=== PATIENT | female | born 1995 | race Two or more races ===

== ENCOUNTER 2021-01-07 19:09 | Inpatient (IN) | payer BC ==
[2021-01-07] MEDS ORDERED: Misoprostol 200 MCG Tab PO PRN (19:32)
[2021-01-07] MEDS ORDERED: Sodium Chloride 0.9% 10 ML SDV IV PRN (19:32)
[2021-01-07] MEDS ORDERED: Tranexamic Acid 1,000 MG in Sodium Chloride 0.9% 100 ML IV PRN (19:32)
[2021-01-07] MEDS ORDERED: Sodium Chloride 0.9% 10 ML Syringe FLUSH PRN (19:32)
[2021-01-07] MEDS ORDERED: Lidocaine 1% 50 ML MDV INJECT PRN (19:32)
[2021-01-07] MEDS ORDERED: Methylergonovine 0.2 MG/1 ML Amp IM PRN (19:32)
[2021-01-07] MEDS ORDERED: Water For Irrigation,Sterile 1,000 ML Container IRR PRN (19:32)
[2021-01-07] MEDS ORDERED: Sodium Chloride 0.9% 2.5 ML Syringe FLUSH PRN (19:32)
[2021-01-07] MEDS ORDERED: Carboprost Tromethamine 250 MCG/1 ML Amp IM PRN (19:32)
[2021-01-07] MEDS ORDERED: Terbutaline 1 MG/ML SDV SUBCUT PRN (19:32)
[2021-01-07] MEDS ORDERED: Nalbuphine 10 MG/1 ML Vial IVPUSH PRN (19:32)
[2021-01-07] MEDS ORDERED: Oxytocin/0.9 % Sodium Chloride 30 UNIT/500 ML BAG IV SCH ×2 (19:45)
[2021-01-07] MEDS ORDERED: Misoprostol 25 MCG (1/4 of 100 MCG) Tab VAG PRN ×2 (21:00)
[2021-01-07] MEDS ORDERED: Ampicillin 2 GM in Sodium Chloride 0.9% 100 ML IV ONE (21:00)
[2021-01-07] MEDS: Lactated Ringers 1,000 ML IV SCH (21:15)
[2021-01-07] MEDS ORDERED: Ampicillin 2 GM Vial ONE (21:45)
[2021-01-07] MEDS ORDERED: Sodium Chloride 0.9% 100 ML ONE (21:45)
[2021-01-08] MEDS: Lactated Ringers 1,000 ML IV SCH ×4 (01:52→21:08)
[2021-01-08] MEDS: Butorphanol 1 MG/ML SDV IVPUSH PRN ×2 (02:40→04:42)
[2021-01-08] MEDS: Ampicillin 1 GM in Sodium Chloride 0.9% 50 ML IV SCH ×4 (02:42→15:17)
[2021-01-08] MEDS ORDERED: fentaNYL 100 MCG/2 ML SDV ONE ×4 (06:09→18:21)
[2021-01-08] MEDS ORDERED: Ropivacaine HCl/PF 100 ML ONE ×2 (06:09→15:02)
[2021-01-08] MEDS ORDERED: Ropivacaine 0.2% PF 2 MG/ML 20 ML SDV ONE (06:09)
--- NOTE | 2021-01-08 07:00 | PCM.PREANE ---
Preanesthetic Assessment - Procedure Proposed Procedure: labor epidural- induction - Anesthesia/Transfusion/Family Hx Anesthesia History: No Prior Anesthesia Family History of Anesthesia Reaction: No Transfusion History: Prior Transfusion Without Reaction - Review of Systems General: No Symptoms Pulmonary: No Symptoms Cardiovascular: No Symptoms Gastrointestinal: No Symptoms Neurological: No Symptoms Other: Reports: Diabetes (gestional DM) - Physical Assessment Height: 5 ft 6 in Weight: 107.955 kg ASA Class: 2 Mental Status: Alert & Oriented x3 Airway Class: Mallampati = 1 Dentition: Reports: Normal Dentition Thyro-Mental Finger Breadths: 3 Mouth Opening Finger Breadths: 3 ROM/Head Extension: Full Lungs: Clear to Auscultation, Normal Respiratory Effort Cardiovascular: Regular Rate, Regular Rhythm - Lab Values: Laboratory Last Values WBC 8.30 K/uL (4.0-11.0) 01/07/21 20:36 RBC 4.93 M/uL (4.30-5.90) 01/07/21 20:36 Hgb 13.3 g/dL (12.0-16.0) 01/07/21 20:36 Hct 41.2 % (36.0-46.0) 01/07/21 20:36 MCV 83.6 fL (80.0-98.0) 01/07/21 20:36 MCH 27.0 pg (27.0-32.0) 01/07/21 20:36 MCHC 32.3 g/dL (31.0-37.0) 01/07/21 20:36 RDW Std Deviation 58.3 fl (28.0-62.0) 01/07/21 20:36 RDW Coeff of Lotus 19 % (11.0-15.0) H 01/07/21 20:36 Plt Count 264 K/uL (150-400) 01/07/21 20:36 MPV 10.30 fL (7.40-12.00) 01/07/21 20:36 Nucleated RBC % 0.0 /100WBC 01/07/21 20:36 Nucleated RBCs # 0 K/uL 01/07/21 20:36 POC Glucose 70 mg/dL (70-99) 01/08/21 04:32 Blood Type O POSITIVE 01/07/21 20:36 Antibody Screen NEGATIVE 01/07/21 20:36 - Allergies Allergies/Adverse Reactions: Allergies Allergy/AdvReac Type Severity Reaction Status Date / Time No Known Allergies Allergy Verified 01/07/21 20:48 - Blood Blood Available: Yes Product(s) Available: PRBC - Anesthesia Plan Pre-Op Medication Ordered: None - Acknowledgements Anesthesia Type Planned: Epidural Pt an Appropriate Candidate for the Planned Anesthesia: Yes Alternatives and Risks of Anesthesia Discussed w Pt/Guardian: Yes Pt/Guardian Understands and Agrees with Anesthesia Plan: Yes PreAnesthesia Questionnaire HEENT History: Reports: Impaired Vision, Other (See Below) Other HEENT History: 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 Cardiovascular History: Reports: None RESIDENT MEDICAL OFFICER History: Reports: Endocrine/Metabolic History: Reports: Diabetes, Gestational Hematologic History: Reports: Blood Transfusion(s) - Past Surgical History HEENT Surgical History: Reports: None Endocrine Surgical History: Reports: None Dermatological Surgical History: Reports: None - SUBSTANCE USE Tobacco Use Status *Q: Never Tobacco User Second Hand Smoke Exposure: No Recreational Drug Use History: No - HOME MEDS Home Medications: Home Meds Ferrous Sulfate, Dried [Iron] 160 mg PO DAILY 01/07/21 [History] Vits #93/Iron Fum/FA [ Formula Tablet] 1 each PO DAILY 01/07/21 [History] - CURRENT (IN HOUSE) MEDS Current Meds: Current Medications Butorphanol Tartrate (Butorphanol 1 Mg/Ml Sdv) 1 mg IVPUSH Q1H PRN PRN Reason: Pain Last Admin: 01/08/21 04:42 Dose: 1 mg Documented by: Carboprost Tromethamine (Carboprost Tromethamine 250 Mcg/1 Ml Amp) 250 mcg IM ASDIRECTED PRN PRN Reason: Post Hemorrhage Oxytocin/Sodium Chloride (Oxytocin 30 Unit/500 Ml-Ns) 30 unit in 500 mls @ 999 mls/hr IV TITRATE TOBY Tranexamic Acid 1,000 mg/ (Sodium Chloride) 110 mls @ 660 mls/hr IV ONETIME PRN PRN Reason: Bleeding Oxytocin/Sodium Chloride (Oxytocin 30 Unit/500 Ml-Ns) 30 unit in 500 mls @ 2 mls/hr IV TITRATE TOBY; Protocol Ampicillin Sodium 1 gm/ Sodium (Chloride) 50 mls @ 100 mls/hr IV Q4H TOBY Last Admin: 01/08/21 02:42 Dose: 100 mls/hr Documented by: Lactated Ringer's (Ringers, Lactated) 1,000 mls @ 150 mls/hr IV ASDIRECTED TOBY Last Admin: 01/08/21 06:19 Dose: 999 mls/hr Documented by: Lidocaine HCl (Lidocaine 1% 50 Ml Mdv) 50 ml INJECT ONETIME PRN PRN Reason: Laceration repair Methylergonovine Maleate (Methylergonovine 0.2 Mg/1 Ml Amp) 0.2 mg IM ASDIRECTED PRN PRN Reason: Post Hemorrhage Misoprostol (Misoprostol 200 Mcg Tab) 200 mcg PO ONETIME PRN PRN Reason: Post Hemorrhage Misoprostol (Misoprostol 25 Mcg (1/4 Of 100 Mcg) Tab) 25 mcg VAG ONETIME PRN PRN Reason: Cervical Ripening Last Admin: 01/07/21 22:06 Dose: 25 mcg Documented by: Misoprostol (Misoprostol 25 Mcg (1/4 Of 100 Mcg) Tab) 25 mcg VAG Q4H PRN PRN Reason: Cervical Ripening Last Admin: 01/08/21 01:53 Dose: 25 mcg Documented by: Nalbuphine HCl (Nalbuphine 10 Mg/1 Ml Vial) 10 mg IVPUSH Q1H PRN PRN Reason: Pain (severe 7-10) Ondansetron HCl (Ondansetron 4 Mg/2 Ml Sdv) 4 mg IVPUSH Q6H PRN PRN Reason: Nausea/Vomiting Sodium Chloride (Sodium Chloride 0.9% 10 Ml Syringe) 10 ml FLUSH ASDIRECTED PRN PRN Reason: Keep Vein Open Sodium Chloride (Sodium Chloride 0.9% 2.5 Ml Syringe) 2.5 ml FLUSH ASDIRECTED PRN PRN Reason: Keep Vein Open Sodium Chloride (Sodium Chloride 0.9% 10 Ml Sdv) 10 ml IV ASDIRECTED PRN PRN Reason: IV Use Sterile Water (Water For Irrigation,Sterile 1,000 Ml Container) 1,000 ml IRR ASDIRECTED PRN PRN Reason: delivery Terbutaline Sulfate (Terbutaline 1 Mg/Ml Sdv) 0.25 mg SUBCUT ASDIRECTED PRN PRN Reason: Tacysystole Discontinued Medications Ampicillin Sodium (Ampicillin 2 Gm Vial) Confirm Administered Dose 2 gm .ROUTE .[facility] ONE Stop: 01/07/21 21:46 Last Admin: 01/08/21 04:51 Dose: Not Given Documented by: Fentanyl (Fentanyl 100 Mcg/2 Ml Sdv) Confirm Administered Dose 100 mcg .[address] .[facility] ONE Stop: 01/08/21 06:10 Ampicillin Sodium 2 gm/ Sodium (Chloride) 100 mls @ 200 mls/hr IV ONETIME ONE Stop: 01/07/21 21:29 Last Admin: 01/07/21 22:04 Dose: 200 mls/hr Documented by: Sodium Chloride (Normal Saline) Confirm Administered Dose 100 mls @ as directed .ROUTE .[facility] ONE Stop: 01/07/21 21:46 Last Admin: 01/08/21 04:51 Dose: Not Given Documented by: Ropivacaine (Naropin 0.2%) Confirm Administered Dose 100 mls @ as directed .ROUTE .[facility] ONE Stop: 01/08/21 06:10 Ropivacaine (Ropivacaine 0.2% Pf 2 Mg/Ml 20 Ml Sdv) Confirm Administered Dose 20 ml .[address] .[facility] ONE Stop: 01/08/21 06:10
[2021-01-08] MEDS: Ondansetron 4 MG/2 ML SDV IVPUSH PRN ×2 (09:37→15:25)
[2021-01-08] MEDS ORDERED: Lidocaine 2% with EPINEPHrine 1:200,000 20 ML SDV ONE ×2 (13:26→18:22)
--- NOTE | 2021-01-08 13:35 | PCM.PRNOTE ---
- Free Text/Narrative Note: Anes Note Patient reports incomplete analgesia right side. Epidural cath pulled back from 20 cm sterling at skin to 15 cm sterling at skin. Epidural cath redressed with sterile bandage. The epidural was then redosed with 100 mcg fentanyl plus 5 cc 2% lido with epi. Time with patient [id number] Aki Russo CRNA
[2021-01-08] MEDS ORDERED: Acetaminophen 500 MG Tab PO PRN (16:36)
[2021-01-08] MEDS ORDERED: Citric Acid/Sodium Citrate Solution 30 ML Cup PO ONE (18:16)
[2021-01-08] MEDS ORDERED: Oxytocin 10 Units/1 ML SDV ONE (18:21)
[2021-01-08] MEDS ORDERED: Phenylephrine 1% 10 MG/ML SDV ONE (18:21)
[2021-01-08] MEDS ORDERED: Ondansetron 4 MG/2 ML SDV ONE (18:21)
[2021-01-08] MEDS ORDERED: Ketorolac 30 MG/ML SDV ONE (18:21)
[2021-01-08] MEDS ORDERED: Morphine PF 10 MG/10 ML SDV ONE (18:21)
[2021-01-08] MEDS ORDERED: ceFAZolin 1 GM Vial ONE (18:22)
[2021-01-08] MEDS ORDERED: Sodium Chloride 0.9% 20 ML ONE (18:22)
[2021-01-08] MEDS ORDERED: Oxytocin/0.9 % Sodium Chloride 30 UNIT/500 ML BAG IV SCH (18:30)
[2021-01-08] MEDS ORDERED: Nalbuphine 10 MG/1 ML Vial IVPUSH PRN (19:03)
[2021-01-08] MEDS ORDERED: Midazolam 1 MG/ML 2 ML SDV ONE (19:07)
[2021-01-08] MEDS ORDERED: diphenhydrAMINE 50 MG/ML SDV IVPUSH PRN (20:13)
[2021-01-08] MEDS ORDERED: Acetaminophen/oxyCODONE 325-5 MG Tab PO PRN ×2 (20:13)
[2021-01-08] MEDS ORDERED: Lanolin 100% Cream 7 GM Tube TOP PRN (20:13)
[2021-01-08] MEDS ORDERED: Bisacodyl 10 MG Supp RECTAL PRN (20:13)
[2021-01-08] MEDS ORDERED: Ondansetron 4 MG/2 ML SDV IVPUSH PRN (20:13)
[2021-01-08] MEDS ORDERED: Oxytocin/Lactated Ringers 30 UNIT/500 ML BAG IV SCH (20:15)
--- NOTE | 2021-01-08 20:30 | PCM.OPNOTE ---
- General Post-Op/Procedure Note Date of Surgery/Procedure: 01/08/21 Operative Procedure(s): Primary low transverse delivery Findings: Live male infant, left occiput posterior position, Apgars 5/9, weight 4590g Extension of left hysterotomy apex to vagina Normal-appearing ovaries and tubes Placenta intact, 3-vessel cord Pre Op Diagnosis: 25yo @ 40w0d. Induction of labor for gestational diabetes. Arrest of descent. Persistent occiput posterior position. GBS positive. Chorioamnionitis. Maternal obesity Post-Op Diagnosis: Same Anesthesia Technique: Epidural Primary Surgeon: Bernadette Gallego Anesthesia Provider: Ismael Johns Pathology: Placenta, cord blood, cord gases Fluid Replacement, Intraop: 1,700 Output, Urine Amount: 150 EBL in mLs: 1,800 Complications: None Condition: Good Free Text/Narrative:: Intake & Output 01/08/21 01/08/21 01/08/21 06:59 14:59 22:59 Intake Total 1000 1550 Output Total 700 Balance 1000 850 1g TXA given intra-op Will place 2 units packed RBCs on hold due to maternal anemia and intra-op hemorrhage Has received Ampicillin, Gentamicin, & Clindamycin for chorioamnionitis
--- NOTE | 2021-01-08 20:41 | PCM.POSTAN ---
POST ANESTHESIA ASSESSMENT - MENTAL STATUS Mental Status: Alert - RESPIRATORY Respiratory Status: Respiratory Rate WNL - CARDIOVASCULAR CV Status: Pulse Rate WNL - GASTROINTESTINAL GI Status: No Symptoms - POST OP HYDRATION Hydration Status: Adequate & Stable
[2021-01-08] MEDS ORDERED: Measles, Mumps & Rubella Vaccine 0.5 ML SDV SUBCUT ONE (21:00)
--- NOTE | 2021-01-08 22:07 | OR ---
SURGEON: Bernadette Gallego MD DATE OF PROCEDURE: 01/08/2021 PREOPERATIVE DIAGNOSES: 1. 25-year-old G1, P0, at 40 weeks' and 0 day gestation. 2. Induction of labor for gestational diabetes. 3. Arrest of descent. 4. Persistent occiput posterior position. 5. Group B Streptococcus positive. 6. Chorioamnionitis. 7. Maternal obesity. 8. macrosomia. POSTOPERATIVE DIAGNOSES: 1. 25-year-old G1, P0, at 40 weeks' and 0 day gestation. 2. Induction of labor for gestational diabetes. 3. Arrest of descent. 4. Persistent occiput posterior position. 5. Group B Streptococcus positive. 6. Chorioamnionitis. 7. Maternal obesity. 8. macrosomia. PROCEDURE: Primary low transverse delivery. PRIMARY SURGEON: Bernadette Gallego MD ANESTHESIA: Epidural. IV FLUIDS: 1700 mL. URINE OUTPUT: 150 mL. ESTIMATED BLOOD LOSS: 1800 mL. ANTIBIOTIC PROPHYLAXIS: Ampicillin, gentamicin, and clindamycin. INTRAOPERATIVE MEDICATION: 1 g tranexamic acid. PATHOLOGY: Placenta, cord blood, cord gases. FINDINGS: Live male infant in left occiput posterior position. scores 5 and 9 at one and five minutes respectively. Weight 4590 g. Extension of right hysterotomy apex to vagina. Normal-appearing ovaries and tubes. Placenta intact with 3- vessel cord. INDICATIONS: This is a 25-year-old G1, P0, who presented at 39 weeks' and 6 days' gestation for planned induction of labor due to gestational diabetes. She was started on ampicillin for GBS prophylaxis. She received 2 doses of Cytotec and began guerda. She had spontaneous rupture of membranes with clear fluid noted. She received an epidural at approximately 4 cm dilated. She was started on Pitocin for augmentation of labor. She progressed to complete cervical dilation. At this time, maternal fever of 100.6 degrees Fahrenheit was noted. She was given Tylenol, and a repeat temperature was 100.8 degrees Fahrenheit. At this time, she was started on gentamicin for presumed intra-amniotic infection. The patient began pushing, and over the next 2 hours, pushed to +1 station. The head was in persistent occiput posterior position, and due to suspected macrosomia and minimal descent with good maternal pushing efforts, the decision was made to proceed with delivery. The risks and benefits and alternatives of delivery were reviewed with the patient and her , and she desired to proceed. She received clindamycin for additional preoperative antibiotic prophylaxis. DESCRIPTION OF PROCEDURE: The patient was taken to operating room, where epidural anesthesia was found to be adequate. She was placed in a dorsal supine position with a leftward tilt. She was prepared and draped in the normal sterile fashion. A Pfannenstiel skin incision was made with a scalpel and carried through to the underlying layer of fascia with the Bovie. Fascial incision was extended with curved Rob scissors. The superior aspect of the fascial incision was grasped with Bailey clamps, elevated, and underlying rectus muscles dissected off bluntly. In a similar fashion, inferior aspect of the fascial incision was grasped with Bailey clamps, elevated, and the underlying rectus muscles dissected off bluntly. Peritoneum was identified in the midline and entered bluntly with a digit. The peritoneal incision was extended using manual traction. Next, a large Carlos retractor was inserted. A bladder flap was created in the usual manner. A low uterine hysterotomy was created. The hysterotomy was extended using manual traction. The fetus was noted to be in left occiput posterior position. The head was reduced on the pelvis, however, due to positioning delivery of the head was extremely difficult. The 's arm repeatedly protruded through the hysterotomy and was replaced. The head was at an angle and with moderate exertion was able to be straightened out and eventually the head was delivered through the hysterotomy. The remainder of the body was delivered easily with manual pressure on the fundus. The cord was clamped and cut and the infant was quickly handed off to the awaiting nurse cell maker and respiratory therapist. Cord blood and cord gases were obtained. Placenta was removed via manual extraction. The uterus was cleared of all clots and blood and debris. The hysterotomy was inspected and noted to have the right apex extending into the vagina. A running lock stitch of 0 Vicryl suture was used to close the majority of the hysterotomy. A second stitch of the same suture was used to close the vaginal extension. A third stitch of 0 Vicryl suture was used to imbricate the incision. The incision was oozing, and at this time, 1 g of tranexamic acid was given along with Dalton placed on the hysterotomy. Hemostasis was then observed. The Carlos retractor was removed. The fascial incision was closed with a running stitch of 0 Vicryl suture. The subcutaneous tissue was closed with 3-0 Vicryl in a running fashion. Skin was closed with 4-0 Monocryl in a subcuticular fashion. Steri-Strips and a pressure dressing were applied. The patient tolerated the delivery well. All sponge, lap, and needle counts were correct x3. [id number] / MODL /[id number] MTDD
[2021-01-09] MEDS: Clindamycin Phosphate in D5W 900 MG in Premix Bag 1 BAG IV SCH ×8 (02:20→20:22)
[2021-01-09] MEDS: Ketorolac 30 MG/ML SDV IVPUSH SCH ×4 (02:20→16:18)
[2021-01-09] MEDS: Lactated Ringers 1,000 ML IV SCH (04:58)
--- NOTE | 2021-01-09 06:51 | PCM48HPAN ---
Post Anesthesia Note - EVALUATION WITHIN 48HRS OF ANESTHETIC Vital Signs in Normal Range: Yes Patient Participated in Evaluation: Yes Respiratory Function Stable: Yes Airway Patent: Yes Cardiovascular Function Stable: Yes Hydration Status Stable: Yes Pain Control Satisfactory: Yes Nausea and Vomiting Control Satisfactory: Yes Mental Status Recovered: Yes Vital Signs: Last Vital Signs Temp 36.9 C 01/09/21 04:00 Pulse 97 01/09/21 04:00 Resp 18 01/09/21 06:00 BP 115/69 01/09/21 04:00 Pulse Ox 99 01/09/21 06:00
[2021-01-09] MEDS: Docusate Sodium 100 MG Cap PO SCH ×2 (08:46→20:22)
--- NOTE | 2021-01-09 09:57 | PCM.PNPP ---
- General Info Date of Service: 01/09/21 Admission Dx/Problem (Free Text): Patient doing well this morning. Minimal lochia. Doing well with eating breakfast so far, no nausea. Has not ambulated yet. [place] still in place. Functional Status: Reports: Pain Controlled, Tolerating Diet - Review of Systems General: Reports: No Symptoms HEENT: Reports: No Symptoms Pulmonary: Reports: No Symptoms Cardiovascular: Reports: No Symptoms Gastrointestinal: Reports: Abdominal Pain Genitourinary: Reports: No Symptoms Musculoskeletal: Reports: No Symptoms Skin: Reports: No Symptoms Neurological: Reports: No Symptoms Psychiatric: Reports: No Symptoms - Patient Data Vital Signs - Most Recent: Last Vital Signs Temp 36.3 C 01/09/21 08:00 Pulse 97 01/09/21 09:00 Resp 18 01/09/21 09:00 BP 119/62 01/09/21 08:00 Pulse Ox 99 01/09/21 09:00 Weight - Most Recent: 107.955 kg I&O - Last 24 Hours: Intake & Output 01/08/21 01/09/21 01/09/21 22:59 06:59 14:59 Intake Total 3250 1050 Output Total 1000 225 Balance 2250 825 Lab Results - Last 24 Hours: Laboratory Results - last 24 hr 01/07/21 01/08/21 01/08/21 Range/Units 20:36 11:05 12:15 Hgb (12.0-16.0) g/dL Hct (36.0-46.0) % Cord VBG pH (7.25-7.45) Cord VBG Base Excess (-10--2) POC Glucose 65 L 68 L (70-99) mg/dL Blood Type O POSITIVE Antibody Screen NEGATIVE Crossmatch See Detail 01/08/21 01/08/21 01/08/21 Range/Units 13:30 15:06 16:45 Hgb (12.0-16.0) g/dL Hct (36.0-46.0) % Cord VBG pH (7.25-7.45) Cord VBG Base Excess (-10--2) POC Glucose 68 L 81 75 (70-99) mg/dL Blood Type Antibody Screen Crossmatch 01/08/21 01/08/21 01/08/21 Range/Units 18:00 18:57 20:44 Hgb 11.3 L (12.0-16.0) g/dL Hct 34.5 L (36.0-46.0) % Cord VBG pH 7.262 (7.25-7.45) Cord VBG Base Excess -7 (-10--2) POC Glucose 80 (70-99) mg/dL Blood Type Antibody Screen Crossmatch 01/09/21 01/09/21 Range/Units 00:25 05:15 Hgb 10.1 L 10.0 L (12.0-16.0) g/dL Hct 31.2 L 31.1 L (36.0-46.0) % Cord VBG pH (7.25-7.45) Cord VBG Base Excess (-10--2) POC Glucose (70-99) mg/dL Blood Type Antibody Screen Crossmatch Med Orders - Current: Current Medications Acetaminophen (Acetaminophen 500 Mg Tab) 1,000 mg PO Q6H PRN PRN Reason: Fever Last Admin: 01/08/21 16:45 Dose: 1,000 mg Documented by: Bisacodyl (Bisacodyl 10 Mg Supp) 10 mg RECTAL ONETIME PRN PRN Reason: Constipation Butorphanol Tartrate (Butorphanol 1 Mg/Ml Sdv) 1 mg IVPUSH Q1H PRN PRN Reason: Pain Last Admin: 01/08/21 04:42 Dose: 1 mg Documented by: Carboprost Tromethamine (Carboprost Tromethamine 250 Mcg/1 Ml Amp) 250 mcg IM ASDIRECTED PRN PRN Reason: Post Hemorrhage Diphenhydramine HCl (Diphenhydramine 50 Mg/Ml Sdv) 25 mg IVPUSH Q6H PRN PRN Reason: Itching or Nausea Docusate Sodium (Docusate Sodium 100 Mg Cap) 100 mg PO BID TOBY Last Admin: 01/09/21 08:46 Dose: 100 mg Documented by: Emollient Ointment (Lanolin 100% Cream 7 Gm Tube) 0 gm TOP ASDIRECTED PRN PRN Reason: Sore Nipples Oxytocin/Sodium Chloride (Oxytocin 30 Unit/500 Ml-Ns) 30 unit in 500 mls @ 999 mls/hr IV TITRATE TOBY Tranexamic Acid 1,000 mg/ (Sodium Chloride) 110 mls @ 660 mls/hr IV ONETIME PRN PRN Reason: Bleeding Oxytocin/Sodium Chloride (Oxytocin 30 Unit/500 Ml-Ns) 30 unit in 500 mls @ 2 mls/hr IV TITRATE [facility]; Protocol Last Titration: 01/08/21 18:12 Dose: 0 munits/min, 0 mls/hr Documented by: Ampicillin Sodium 1 gm/ Sodium (Chloride) 50 mls @ 100 mls/hr IV Q4H [facility] Last Admin: 01/08/21 15:17 Dose: 100 mls/hr Documented by: Lactated Ringer's (Ringers, Lactated) 1,000 mls @ 150 mls/hr IV ASDIRECTED [facility] Last Infusion: 01/08/21 14:30 Dose: 150 mls/hr Documented by: Oxytocin/Sodium Chloride (Oxytocin 30 Unit/500 Ml-Ns) 30 unit in 500 mls @ 250 mls/hr IV TITRATE [facility] Clindamycin Phosphate 900 mg/ (Premix) 50 mls @ 100 mls/hr IV Q8H [facility] Stop: 01/09/21 19:00 Last Admin: 01/09/21 02:20 Dose: 100 mls/hr Documented by: Lactated Ringer's (Ringers, Lactated) 1,000 mls @ 125 mls/hr IV ASDIRECTED [facility] Last Admin: 01/09/21 04:58 Dose: 125 mls/hr Documented by: Oxytocin/Lactated Ringer's (Pitocin In Lr 30 Units/500 Ml) 30 unit in 500 mls @ 999 mls/hr IV TITRATE [facility]; Protocol Gentamicin Sulfate 540 mg/ (Sodium Chloride) 63.5 mls @ 100 mls/hr IV ONETIME ONE Stop: 01/09/21 18:38 Ibuprofen (Ibuprofen 800 Mg Tab) 800 mg PO Q8H PRN PRN Reason: mild pain or fever Ketorolac Tromethamine (Ketorolac 30 Mg/Ml Sdv) 30 mg IVPUSH Q6H [facility] Stop: 01/09/21 14:16 Last Admin: 01/09/21 09:27 Dose: Not Given Documented by: Lidocaine HCl (Lidocaine 1% 50 Ml Mdv) 50 ml INJECT ONETIME PRN PRN Reason: Laceration repair Methylergonovine Maleate (Methylergonovine 0.2 Mg/1 Ml Amp) 0.2 mg IM ASDIRECTED PRN PRN Reason: Post Hemorrhage Misoprostol (Misoprostol 200 Mcg Tab) 200 mcg PO ONETIME PRN PRN Reason: Post Hemorrhage Misoprostol (Misoprostol 25 Mcg (1/4 Of 100 Mcg) Tab) 25 mcg VAG ONETIME PRN PRN Reason: Cervical Ripening Last Admin: 01/07/21 22:06 Dose: 25 mcg Documented by: Misoprostol (Misoprostol 25 Mcg (1/4 Of 100 Mcg) Tab) 25 mcg VAG Q4H PRN PRN Reason: Cervical Ripening Last Admin: 01/08/21 01:53 Dose: 25 mcg Documented by: Nalbuphine HCl (Nalbuphine 10 Mg/1 Ml Vial) 10 mg IVPUSH Q1H PRN PRN Reason: Pain (severe 7-10) Nalbuphine HCl (Nalbuphine 10 Mg/1 Ml Vial) 5 mg IVPUSH Q3H PRN PRN Reason: Pruritis Stop: 01/09/21 19:03 Ondansetron HCl (Ondansetron 4 Mg/2 Ml Sdv) 4 mg IVPUSH Q6H PRN PRN Reason: Nausea/Vomiting Last Admin: 01/08/21 15:25 Dose: 4 mg Documented by: Ondansetron HCl (Ondansetron 4 Mg/2 Ml Sdv) 4 mg IVPUSH Q4H PRN PRN Reason: Nausea/Vomiting Oxycodone/Acetaminophen (Acetaminophen/Oxycodone 325-5 Mg Tab) 1 tab PO Q4H PRN PRN Reason: Pain (moderate 4-6) Oxycodone/Acetaminophen (Acetaminophen/Oxycodone 325-5 Mg Tab) 2 tab PO Q4H PRN PRN Reason: Pain (moderate 4-6) Sodium Chloride (Sodium Chloride 0.9% 10 Ml Syringe) 10 ml FLUSH ASDIRECTED PRN PRN Reason: Keep Vein Open Sodium Chloride (Sodium Chloride 0.9% 2.5 Ml Syringe) 2.5 ml FLUSH ASDIRECTED PRN PRN Reason: Keep Vein Open Sodium Chloride (Sodium Chloride 0.9% 10 Ml Sdv) 10 ml IV ASDIRECTED PRN PRN Reason: IV Use Sterile Water (Water For Irrigation,Sterile 1,000 Ml Container) 1,000 ml IRR ASDIRECTED PRN PRN Reason: delivery Terbutaline Sulfate (Terbutaline 1 Mg/Ml Sdv) 0.25 mg SUBCUT ASDIRECTED PRN PRN Reason: Tacysystole Discontinued Medications Ampicillin Sodium (Ampicillin 2 Gm Vial) Confirm Administered Dose 2 gm .ROUTE .[facility]-MED ONE Stop: 01/07/21 21:46 Last Admin: 01/08/21 04:51 Dose: Not Given Documented by: Cefazolin Sodium (Cefazolin 1 Gm Vial) Confirm Administered Dose 2 gm .ROUTE .[facility]-MED ONE Stop: 01/08/21 18:23 Citric Acid/Sodium Citrate (Citric Acid/Sodium Citrate Solution 30 Ml Cup) 30 ml PO ONETIME ONE Stop: 01/08/21 18:17 Fentanyl (Fentanyl 100 Mcg/2 Ml Sdv) Confirm Administered Dose 100 mcg .ROUTE .[facility] ONE Stop: 01/08/21 06:10 Fentanyl (Fentanyl 100 Mcg/2 Ml Sdv) Confirm Administered Dose 100 mcg .ROUTE .[facility] ONE Stop: 01/08/21 13:27 Fentanyl (Fentanyl 100 Mcg/2 Ml Sdv) Confirm Administered Dose 100 mcg .ROUTE .[facility] ONE Stop: 01/08/21 15:02 Fentanyl (Fentanyl 100 Mcg/2 Ml Sdv) Confirm Administered Dose 100 mcg .ROUTE .[facility] ONE Stop: 01/08/21 18:22 Ampicillin Sodium 2 gm/ Sodium (Chloride) 100 mls @ 200 mls/hr IV ONETIME ONE Stop: 01/07/21 21:29 Last Admin: 01/07/21 22:04 Dose: 200 mls/hr Documented by: Sodium Chloride (Normal Saline) Confirm Administered Dose 100 mls @ as directed .ROUTE .[facility] ONE Stop: 01/07/21 21:46 Last Admin: 01/08/21 04:51 Dose: Not Given Documented by: Ropivacaine (Naropin 0.2%) Confirm Administered Dose 100 mls @ as directed .ROUTE .[facility]-MED ONE Stop: 01/08/21 06:10 Ropivacaine (Naropin 0.2%) Confirm Administered Dose 100 mls @ as directed .ROUTE .[facility] ONE Stop: 01/08/21 15:03 Gentamicin Sulfate 540 mg/ (Sodium Chloride) 113.5 mls @ 227 mls/hr IV Q24H TOBY Last Admin: 01/08/21 17:51 Dose: 227 mls/hr Documented by: Sodium Chloride (Normal Saline) Confirm Administered Dose 20 mls @ as directed .ROUTE .[facility] ONE Stop: 01/08/21 18:23 Acetaminophen (Ofirmev 1000 Mg/100 Ml) Confirm Administered Dose 100 mls @ as directed .ROUTE .[facility] ONE Stop: 01/08/21 19:38 Ketorolac Tromethamine (Ketorolac 30 Mg/Ml Sdv) Confirm Administered Dose 30 mg .ROUTE .[facility]-MED ONE Stop: 01/08/21 18:22 Lidocaine/Epinephrine (Lidocaine 2% With Epinephrine 1:200,000 20 Ml Sdv) Confirm Administered Dose 20 ml .ROUTE .[facility]-MED ONE Stop: 01/08/21 13:27 Lidocaine/Epinephrine (Lidocaine 2% With Epinephrine 1:200,000 20 Ml Sdv) Confirm Administered Dose 20 ml .ROUTE .[facility]-MED ONE Stop: 01/08/21 18:23 Measles/Mumps/Rubella Vaccine Live (Measles, Mumps & Rubella Vaccine 0.5 Ml Sdv) 0.5 ml SUBCUT .ONCE ONE Stop: 01/08/21 21:01 Midazolam HCl (Midazolam 1 Mg/Ml 2 Ml Sdv) Confirm Administered Dose 2 mg .ROUTE .[facility]-MED ONE Stop: 01/08/21 19:08 Morphine Sulfate (Morphine Pf 10 Mg/10 Ml Sdv) Confirm Administered Dose 10 mg .ROUTE .[facility]-MED ONE Stop: 01/08/21 18:22 Ondansetron HCl (Ondansetron 4 Mg/2 Ml Sdv) Confirm Administered Dose 4 mg .ROUTE .[facility]-MED ONE Stop: 01/08/21 18:22 Oxytocin (Oxytocin 10 Units/1 Ml Sdv) Confirm Administered Dose 20 unit .ROUTE .[facility]-MED ONE Stop: 01/08/21 18:22 Phenylephrine HCl (Phenylephrine 1% 10 Mg/Ml Sdv) Confirm Administered Dose 10 mg .ROUTE .[facility]-MED ONE Stop: 01/08/21 18:22 Ropivacaine (Ropivacaine 0.2% Pf 2 Mg/Ml 20 Ml Sdv) Confirm Administered Dose 20 ml .ROUTE .[facility]-MED ONE Stop: 01/08/21 06:10 Tranexamic Acid (Tranexamic Acid 1,000 Mg/10 Ml Amp) Confirm Administered Dose 1,000 mg .ROUTE .[facility]-MED ONE Stop: 01/08/21 19:30 - Interaction Disposition, : in Room with Family Feeding: Attempted ; Nursed Fair/Poor, Bottle Fed Infant Support Person: Significant Other - Recovery Exam Fundal Tone: Firm Fundal Level: At Umbilicus Fundal Placement: Midline Lochia Amount: Scant Lochia Color: Rubra/Red Bladder Status: Indwelling Catheter in Place Urinary Elimination: Indwelling Catheter (concentrated urine) - Exam General: Alert, Oriented Neck: Supple Lungs: Normal Respiratory Effort GI/Abdominal Exam: Soft, No Distention, Tender (appropriate tenderness to palpation) Extremities: Non-Tender Skin: Warm, Dry, Intact Wound/Incisions: Dressing Dry and Intact Neurological: No New Focal Deficit Psy/Mental Status: Alert, Normal Affect, Normal Mood - Problem List & Annotations (1) S/P primary low transverse SNOMED Code(s): 475478358, 47706111, 325931808, 082282880, 246954107 Code(s): Z98.891 - HISTORY OF UTERINE SCAR FROM PREVIOUS SURGERY Status: Acute Current Visit: Yes (2) Arrest of descent, delivered, current hospitalization SNOMED Code(s): 23969992, 944343168 Code(s): O62.1 - SECONDARY UTERINE INERTIA Status: Acute Current Visit: Yes (3) macrosomia, delivered, current hospitalization SNOMED Code(s): 38172159, 095629964, 787581796 Code(s): O36.60X0 - MATERNAL CARE FOR EXCESS GROWTH, UNSP TRIMESTER, UNSP Status: Acute Current Visit: Yes (4) hemorrhage, delivered, current hospitalization SNOMED Code(s): 90702131, 082639399 Code(s): O72.1 - OTHER IMMEDIATE HEMORRHAGE Status: Acute Current Visit: Yes (5) Chorioamnionitis, delivered, current hospitalization SNOMED Code(s): 39716937, 454229284 Code(s): O41.1290 - CHORIOAMNIONITIS, UNSP TRIMESTER, NOT APPLICABLE OR UNSP Status: Acute Current Visit: Yes (6) Gestational diabetes, diet controlled SNOMED Code(s): 97984417, 458172539, 714839713 Code(s): O24.410 - GESTATIONAL DIABETES MELLITUS IN , DIET CONTROLLED Status: Acute Current Visit: Yes - Problem List Review Problem List Initiated/Reviewed/Updated: Yes - My Orders Last 24 Hours: My Active Orders 01/08/21 16:36 Acetaminophen [Tylenol Extra Strength] 1,000 mg PO Q6H PRN 01/08/21 18:17 Procedure Site Prep Instruct [RC] ASDIRECTED Verify Patient Consent Obtain [RC] ASDIRECTED Schedule Procedure [COMM] Per Unit Routine 01/08/21 18:30 Clindamycin Phosphate in D5W [Cleocin in D5W 900 MG/50 ML] 900 mg Premix Bag 1 bag IV Q8H Oxytocin/0.9 % Sodium Chloride [Oxytocin 30 Unit/500 ML-NS] 30 unit in 500 ml IV TITRATE 01/08/21 20:13 Intake and Output [RC] QSHIFT Notify Provider Intake and Out [RC] ASDIRECTED Notify Provider Vital Signs [RC] ASDIRECTED Urinary Catheter Removal [RC] PER UNIT ROUTINE Acetaminophen/oxyCODONE [Percocet 325-5 MG] 1 tab PO Q4H PRN Acetaminophen/oxyCODONE [Percocet 325-5 MG] 2 tab PO Q4H PRN Ibuprofen [Motrin] 800 mg PO Q8H PRN Lanolin [Lansinoh HPA] See Dose Instructions TOP ASDIRECTED PRN Ondansetron [Zofran] 4 mg IVPUSH Q4H PRN bisacodyL [Dulcolax] 10 mg RECTAL ONETIME PRN diphenhydrAMINE [Benadryl] 25 mg IVPUSH Q6H PRN Abdominal Binder [OM.PC] Routine DVT/VTE Prophylaxis Reflex [OM.PC] Routine Heat Therapy [OM.PC] Routine Ice Therapy [OM.PC] Routine 01/08/21 20:14 Patient Status [ADT] Routine Ambulate [RC] PER UNIT ROUTINE Antiembolic Devices [RC] PER UNIT ROUTINE Communication Order [RC] PER UNIT ROUTINE Communication Order [RC] PER UNIT ROUTINE Communication Order [RC] Per Unit Routine May Shower [RC] ASDIRECTED RT Incentive Spirometry [RC] Q2HWA Assess Lochia [WOMSER] Per Unit Routine Assess Uterine Involution [WOMSER] Per Unit Routine Breast Pump [WOMSER] Per Unit Routine Peripheral IV Discontinue [OM.PC] Routine Sequential Compression Device [OM.PC] Per Unit Routine 01/08/21 20:15 Ketorolac [Toradol] 30 mg IVPUSH Q6H Lactated Ringers [Ringers, Lactated] 1,000 ml IV ASDIRECTED Oxytocin/Lactated Ringers [Pitocin in LR 30 Units/500 ML] 30 unit in 500 ml IV TITRATE 01/08/21 20:16 Antiembolic Devices [RC] .Routine VTE/DVT Education [RC] PER UNIT ROUTINE 01/08/21 20:18 RED BLOOD CELLS LP [BBK] Routine 01/08/21 20:55 Vaccines to be Administered [RC] PER UNIT ROUTINE 01/08/21 21:00 Docusate Sodium [Colace] 100 mg PO BID 01/09/21 18:00 Gentamicin 540 mg Sodium Chloride 0.9% [Normal Saline] 50 ml IV ONETIME - Assessment Assessment:: 25yo s/p 1LTCS at 40w0d for arrest of descent, persistent OP position, POD#1 - Plan Plan:: 1. care: D/C [place] today. Encourage ambulation. Monitor urine output, encourage hydration. 2. Anemia: Monitor for dizziness. If dizziness develops, will re-check hemoglobin. 2 units packed RBCs on hold due to intra-operative blood loss. 3. Rubella non-immune: MMR ordered. 4. GDMA1: 2-hour GTT . 5. Dispo: Stay today, possible discharge home tomorrow evening if meeting all milestones.
[2021-01-09 17:50] LABS: BLOOD UREA NITROGEN,BUN 13 mg/dL (7.0-18.0); CARBON DIOXIDE,CO2 21.2 mmol/L (21.0-32.0); CHLORIDE,CL 104 mmol/L (98-107); GLUCOSE RANDOM 66 mg/dL (74-106); SODIUM,NA 136 mmol/L (136-145)
[2021-01-09] MEDS ORDERED: GENTAMICIN IV ONE (18:00)
[2021-01-09] MEDS ORDERED: SODIUM CHLORIDE 0.9% IV ONE (18:00)
[2021-01-09] MEDS ORDERED: Ketorolac 30 MG/ML SDV IVPUSH SCH (20:15)
[2021-01-10] MEDS: Ibuprofen 800 MG Tab PO PRN ×2 (04:37→20:53)
[2021-01-10] MEDS: Ondansetron 4 MG/2 ML SDV IVPUSH PRN (05:49)
[2021-01-10] MEDS ORDERED: Promethazine 25 MG Supp RECTAL ONE (06:40)
[2021-01-10] MEDS ORDERED: Ketorolac 30 MG/ML SDV IVPUSH ONE (06:41)
[2021-01-10] MEDS: Docusate Sodium 100 MG Cap PO SCH ×3 (07:16→20:54)
--- NOTE | 2021-01-10 08:37 | PCM.PNPP ---
- General Info Date of Service: 01/10/21 Subjective Update: Patient with nausea and dry heaving that developed overnight. Had bowel movement last night and passed a small amount of flatus. Voided multiple times on own, urine output has increased significantly. Patient reports some chills, but has not had a fever. Denies redness or pain of breasts. Pain controlled when able to keep medication down. Ambulated in the evening without dizziness. Moderate lochia. Functional Status: Reports: Pain Controlled (overnight), Tolerating Diet (last night, nausea this AM), Ambulating, Urinating - Review of Systems General: Reports: Chills. Denies: Fever, Weakness HEENT: Reports: No Symptoms Pulmonary: Reports: No Symptoms. Denies: Shortness of Breath, Pleuritic Chest Pain, Cough Cardiovascular: Reports: No Symptoms. Denies: Chest Pain, Dyspnea on Exertion Gastrointestinal: Reports: Abdominal Pain (appropriate post-op pain), Flatus, Nausea. Denies: Constipation Genitourinary: Reports: No Symptoms Musculoskeletal: Reports: No Symptoms Skin: Reports: No Symptoms Neurological: Reports: No Symptoms Psychiatric: Reports: No Symptoms - Patient Data Vital Signs - Most Recent: Last Vital Signs Temp 37.2 C 01/10/21 07:45 Pulse 123 H 01/10/21 07:45 Resp 18 01/10/21 07:45 BP 142/84 H 01/10/21 07:45 Pulse Ox 96 01/10/21 07:45 Weight - Most Recent: 107.955 kg I&O - Last 24 Hours: Intake & Output 01/09/21 01/10/21 01/10/21 22:59 06:59 14:59 Output Total 400 300 Balance -400 -300 Lab Results - Last 24 Hours: Laboratory Results - last 24 hr 01/09/21 01/09/21 Range/Units 17:28 17:28 Hgb 9.3 L (12.0-16.0) g/dL Hct 28.0 L (36.0-46.0) % Sodium 136 (136-145) mmol/L Potassium 4.0 (3.5-5.1) mmol/L Chloride 104 (98-107) mmol/L Carbon Dioxide 21.2 (21.0-32.0) mmol/L BUN 13 (7.0-18.0) mg/dL Creatinine 0.9 (0.6-1.0) mg/dL Est Cr Clr Drug Dosing 88.68 mL/min Estimated GFR (MDRD) > 60.0 ml/min Glucose 66 L (74-106) mg/dL Calcium 7.4 L (8.5-10.1) mg/dL Med Orders - Current: Current Medications Acetaminophen (Acetaminophen 500 Mg Tab) 1,000 mg PO Q6H PRN PRN Reason: Fever Last Admin: 01/08/21 16:45 Dose: 1,000 mg Documented by: Bisacodyl (Bisacodyl 10 Mg Supp) 10 mg RECTAL ONETIME PRN PRN Reason: Constipation Butorphanol Tartrate (Butorphanol 1 Mg/Ml Sdv) 1 mg IVPUSH Q1H PRN PRN Reason: Pain Last Admin: 01/08/21 04:42 Dose: 1 mg Documented by: Carboprost Tromethamine (Carboprost Tromethamine 250 Mcg/1 Ml Amp) 250 mcg IM ASDIRECTED PRN PRN Reason: Post Hemorrhage Diphenhydramine HCl (Diphenhydramine 50 Mg/Ml Sdv) 25 mg IVPUSH Q6H PRN PRN Reason: Itching or Nausea Docusate Sodium (Docusate Sodium 100 Mg Cap) 100 mg PO BID TOBY Last Admin: 01/10/21 07:16 Dose: Not Given Documented by: Emollient Ointment (Lanolin 100% Cream 7 Gm Tube) 0 gm TOP ASDIRECTED PRN PRN Reason: Sore Nipples Oxytocin/Sodium Chloride (Oxytocin 30 Unit/500 Ml-Ns) 30 unit in 500 mls @ 999 mls/hr IV TITRATE TOBY Tranexamic Acid 1,000 mg/ (Sodium Chloride) 110 mls @ 660 mls/hr IV ONETIME PRN PRN Reason: Bleeding Oxytocin/Sodium Chloride (Oxytocin 30 Unit/500 Ml-Ns) 30 unit in 500 mls @ 2 mls/hr IV TITRATE TOBY; Protocol Last Titration: 01/08/21 18:12 Dose: 0 munits/min, 0 mls/hr Documented by: Lactated Ringer's (Ringers, Lactated) 1,000 mls @ 150 mls/hr IV ASDIRECTED TOBY Last Infusion: 01/08/21 14:30 Dose: 150 mls/hr Documented by: Oxytocin/Sodium Chloride (Oxytocin 30 Unit/500 Ml-Ns) 30 unit in 500 mls @ 250 mls/hr IV TITRATE TOBY Lactated Ringer's (Ringers, Lactated) 1,000 mls @ 125 mls/hr IV ASDIRECTED TOBY Last Admin: 01/09/21 04:58 Dose: 125 mls/hr Documented by: Oxytocin/Lactated Ringer's (Pitocin In Lr 30 Units/500 Ml) 30 unit in 500 mls @ 999 mls/hr IV TITRATE TOBY; Protocol Ibuprofen (Ibuprofen 800 Mg Tab) 800 mg PO Q8H PRN PRN Reason: mild pain or fever Last Admin: 01/10/21 04:37 Dose: 800 mg Documented by: Lidocaine HCl (Lidocaine 1% 50 Ml Mdv) 50 ml INJECT ONETIME PRN PRN Reason: Laceration repair Methylergonovine Maleate (Methylergonovine 0.2 Mg/1 Ml Amp) 0.2 mg IM ASDIRECTED PRN PRN Reason: Post Hemorrhage Misoprostol (Misoprostol 200 Mcg Tab) 200 mcg PO ONETIME PRN PRN Reason: Post Hemorrhage Misoprostol (Misoprostol 25 Mcg (1/4 Of 100 Mcg) Tab) 25 mcg VAG ONETIME PRN PRN Reason: Cervical Ripening Last Admin: 01/07/21 22:06 Dose: 25 mcg Documented by: Misoprostol (Misoprostol 25 Mcg (1/4 Of 100 Mcg) Tab) 25 mcg VAG Q4H PRN PRN Reason: Cervical Ripening Last Admin: 01/08/21 01:53 Dose: 25 mcg Documented by: Nalbuphine HCl (Nalbuphine 10 Mg/1 Ml Vial) 10 mg IVPUSH Q1H PRN PRN Reason: Pain (severe 7-10) Ondansetron HCl (Ondansetron 4 Mg/2 Ml Sdv) 4 mg IVPUSH Q6H PRN PRN Reason: Nausea/Vomiting Last Admin: 01/10/21 05:49 Dose: 4 mg Documented by: Ondansetron HCl (Ondansetron 4 Mg/2 Ml Sdv) 4 mg IVPUSH Q4H PRN PRN Reason: Nausea/Vomiting Oxycodone/Acetaminophen (Acetaminophen/Oxycodone 325-5 Mg Tab) 1 tab PO Q4H PRN PRN Reason: Pain (moderate 4-6) Oxycodone/Acetaminophen (Acetaminophen/Oxycodone 325-5 Mg Tab) 2 tab PO Q4H PRN PRN Reason: Pain (moderate 4-6) Sodium Chloride (Sodium Chloride 0.9% 10 Ml Syringe) 10 ml FLUSH ASDIRECTED PRN PRN Reason: Keep Vein Open Sodium Chloride (Sodium Chloride 0.9% 2.5 Ml Syringe) 2.5 ml FLUSH ASDIRECTED PRN PRN Reason: Keep Vein Open Sodium Chloride (Sodium Chloride 0.9% 10 Ml Sdv) 10 ml IV ASDIRECTED PRN PRN Reason: IV Use Sterile Water (Water For Irrigation,Sterile 1,000 Ml Container) 1,000 ml IRR ASDIRECTED PRN PRN Reason: delivery Terbutaline Sulfate (Terbutaline 1 Mg/Ml Sdv) 0.25 mg SUBCUT ASDIRECTED PRN PRN Reason: Tacysystole Discontinued Medications Ampicillin Sodium (Ampicillin 2 Gm Vial) Confirm Administered Dose 2 gm .ROUTE .STK-MED ONE Stop: 01/07/21 21:46 Last Admin: 01/08/21 04:51 Dose: Not Given Documented by: Cefazolin Sodium (Cefazolin 1 Gm Vial) Confirm Administered Dose 2 gm .ROUTE .STK-MED ONE Stop: 01/08/21 18:23 Citric Acid/Sodium Citrate (Citric Acid/Sodium Citrate Solution 30 Ml Cup) 30 ml PO ONETIME ONE Stop: 01/08/21 18:17 Fentanyl (Fentanyl 100 Mcg/2 Ml Sdv) Confirm Administered Dose 100 mcg .ROUTE .STK-MED ONE Stop: 01/08/21 06:10 Fentanyl (Fentanyl 100 Mcg/2 Ml Sdv) Confirm Administered Dose 100 mcg .ROUTE .STK-MED ONE Stop: 01/08/21 13:27 Fentanyl (Fentanyl 100 Mcg/2 Ml Sdv) Confirm Administered Dose 100 mcg .ROUTE .STK-MED ONE Stop: 01/08/21 15:02 Fentanyl (Fentanyl 100 Mcg/2 Ml Sdv) Confirm Administered Dose 100 mcg .ROUTE .STK-MED ONE Stop: 01/08/21 18:22 Ampicillin Sodium 2 gm/ Sodium (Chloride) 100 mls @ 200 mls/hr IV ONETIME ONE Stop: 01/07/21 21:29 Last Admin: 01/07/21 22:04 Dose: 200 mls/hr Documented by: Ampicillin Sodium 1 gm/ Sodium (Chloride) 50 mls @ 100 mls/hr IV Q4H [facility] Last Admin: 01/08/21 15:17 Dose: 100 mls/hr Documented by: Sodium Chloride (Normal Saline) Confirm Administered Dose 100 mls @ as directed .ROUTE .[facility]-MED ONE Stop: 01/07/21 21:46 Last Admin: 01/08/21 04:51 Dose: Not Given Documented by: Ropivacaine (Naropin 0.2%) Confirm Administered Dose 100 mls @ as directed .ROUTE .[facility]-MED ONE Stop: 01/08/21 06:10 Ropivacaine (Naropin 0.2%) Confirm Administered Dose 100 mls @ as directed .ROUTE .[facility] ONE Stop: 01/08/21 15:03 Gentamicin Sulfate 540 mg/ (Sodium Chloride) 113.5 mls @ 227 mls/hr IV Q24H [facility] Last Admin: 01/08/21 17:51 Dose: 227 mls/hr Documented by: Clindamycin Phosphate 900 mg/ (Premix) 50 mls @ 100 mls/hr IV Q8H [facility] Stop: 01/09/21 19:00 Last Admin: 01/09/21 20:22 Dose: 100 mls/hr Documented by: Sodium Chloride (Normal Saline) Confirm Administered Dose 20 mls @ as directed .ROUTE .[facility] ONE Stop: 01/08/21 18:23 Acetaminophen (Ofirmev 1000 Mg/100 Ml) Confirm Administered Dose 100 mls @ as directed .ROUTE .[facility] ONE Stop: 01/08/21 19:38 Gentamicin Sulfate 540 mg/ (Sodium Chloride) 63.5 mls @ 100 mls/hr IV ONETIME ONE Stop: 01/09/21 18:38 Gentamicin Sulfate 540 mg/ (Sodium Chloride) 113.5 mls @ 178.74 mls/hr IV ONETIME ONE Stop: 01/09/21 18:53 Last Admin: 01/09/21 18:42 Dose: 178.74 mls/hr Documented by: Ketorolac Tromethamine (Ketorolac 30 Mg/Ml Sdv) Confirm Administered Dose 30 mg .ROUTE .[facility]-MED ONE Stop: 01/08/21 18:22 Ketorolac Tromethamine (Ketorolac 30 Mg/Ml Sdv) 30 mg IVPUSH Q6H [facility] Stop: 01/09/21 14:16 Last Admin: 01/09/21 16:18 Dose: 30 mg Documented by: Ketorolac Tromethamine (Ketorolac 30 Mg/Ml Sdv) 30 mg IVPUSH Q6H [facility] Stop: 01/09/21 20:16 Last Admin: 01/09/21 20:23 Dose: 30 mg Documented by: Ketorolac Tromethamine (Ketorolac 30 Mg/Ml Sdv) 30 mg IVPUSH ONETIME ONE Stop: 01/10/21 06:42 Last Admin: 01/10/21 07:44 Dose: 30 mg Documented by: Lidocaine/Epinephrine (Lidocaine 2% With Epinephrine 1:200,000 20 Ml Sdv) Confirm Administered Dose 20 ml .ROUTE .STK-MED ONE Stop: 01/08/21 13:27 Lidocaine/Epinephrine (Lidocaine 2% With Epinephrine 1:200,000 20 Ml Sdv) Confirm Administered Dose 20 ml .ROUTE .STK-MED ONE Stop: 01/08/21 18:23 Measles/Mumps/Rubella Vaccine Live (Measles, Mumps & Rubella Vaccine 0.5 Ml Sdv) 0.5 ml SUBCUT .ONCE ONE Stop: 01/08/21 21:01 Midazolam HCl (Midazolam 1 Mg/Ml 2 Ml Sdv) Confirm Administered Dose 2 mg .ROUTE .STK-MED ONE Stop: 01/08/21 19:08 Morphine Sulfate (Morphine Pf 10 Mg/10 Ml Sdv) Confirm Administered Dose 10 mg .ROUTE .STK-MED ONE Stop: 01/08/21 18:22 Nalbuphine HCl (Nalbuphine 10 Mg/1 Ml Vial) 5 mg IVPUSH Q3H PRN PRN Reason: Pruritis Stop: 01/09/21 19:03 Ondansetron HCl (Ondansetron 4 Mg/2 Ml Sdv) Confirm Administered Dose 4 mg .ROUTE .STK-MED ONE Stop: 01/08/21 18:22 Oxytocin (Oxytocin 10 Units/1 Ml Sdv) Confirm Administered Dose 20 unit .ROUTE .STK-MED ONE Stop: 01/08/21 18:22 Phenylephrine HCl (Phenylephrine 1% 10 Mg/Ml Sdv) Confirm Administered Dose 10 mg .ROUTE .STK-MED ONE Stop: 01/08/21 18:22 Promethazine HCl (Promethazine 25 Mg Supp) 25 mg RECTAL ONETIME ONE Stop: 01/10/21 06:41 Last Admin: 01/10/21 07:57 Dose: 25 mg Documented by: Ropivacaine (Ropivacaine 0.2% Pf 2 Mg/Ml 20 Ml Sdv) Confirm Administered Dose 20 ml .ROUTE .STK-MED ONE Stop: 01/08/21 06:10 Tranexamic Acid (Tranexamic Acid 1,000 Mg/10 Ml Amp) Confirm Administered Dose 1,000 mg .ROUTE .STK-MED ONE Stop: 01/08/21 19:30 - Interaction Disposition, : in Room with Family Feeding: Attempted ; Nursed Fair/Poor, Bottle Fed Support Person: Significant Other - Recovery Exam Fundal Tone: Firm Fundal Level: At Umbilicus Fundal Placement: Midline Lochia Amount: Scant Lochia Color: Rubra/Red Bladder Status: Voiding Urinary Elimination: Voided - Exam General: Alert, Oriented Neck: Supple Lungs: Normal Respiratory Effort GI/Abdominal Exam: Normal Bowel Sounds, Soft, No Distention, Tender (appropriate tenderness) Extremities: Normal Inspection, Non-Tender, No Pedal Edema Skin: Warm, Dry, Intact Wound/Incisions: Healing Well Neurological: No New Focal Deficit Psy/Mental Status: Alert, Normal Affect, Normal Mood - Problem List & Annotations (1) S/P primary low transverse SNOMED Code(s): 636829276, 14417374, 791747242, 637992732, 203874622 Code(s): Z98.891 - HISTORY OF UTERINE SCAR FROM PREVIOUS SURGERY Status: Acute Current Visit: Yes (2) Arrest of descent, delivered, current hospitalization SNOMED Code(s): 99919963, 685589882 Code(s): O62.1 - SECONDARY UTERINE INERTIA Status: Acute Current Visit: Yes (3) macrosomia, delivered, current hospitalization SNOMED Code(s): 17263604, 035140233, 929069800 Code(s): O36.60X0 - MATERNAL CARE FOR EXCESS GROWTH, UNSP TRIMESTER, UNSP Status: Acute Current Visit: Yes (4) hemorrhage, delivered, current hospitalization SNOMED Code(s): 14302642, 246528884 Code(s): O72.1 - OTHER IMMEDIATE HEMORRHAGE Status: Acute Current Visit: Yes (5) Chorioamnionitis, delivered, current hospitalization SNOMED Code(s): 29400785, 360075173 Code(s): O41.1290 - CHORIOAMNIONITIS, UNSP TRIMESTER, NOT APPLICABLE OR UNSP Status: Acute Current Visit: Yes (6) Gestational diabetes, diet controlled SNOMED Code(s): 62320457, 260317055, 080605269 Code(s): O24.410 - GESTATIONAL DIABETES MELLITUS IN , DIET CONTROLLED Status: Acute Current Visit: Yes - Problem List Review Problem List Initiated/Reviewed/Updated: Yes - Assessment Assessment:: 25yo s/p 1LTCS at 40w0d for arrest of descent, persistent OP position, POD#2 - Plan Plan:: 1. care: Encourage ambulation today. Work on nausea and pain control. 2. Anemia: Hemoglobin has remained stable postoperatively. 2 units packed RBCs on hold due to intra-operative blood loss. 3. Rubella non-immune: MMR ordered. 4. GDMA1: 2-hour GTT . 5. Dispo: Stay today due to tachycardia and nausea. If fever develops, will obtain CXR, CBC, CMP, blood cultures, and CT scan of abdomen/pelvis for sepsis evaluation. Differential for nausea and tachycardia include bowel injury (no distension, passing flatus, normal bowel sounds, passed bowel movement), urinary tract injury (voiding large amount of clear urine, Cr normal last evening), infection (uterus nontender, no foul-smelling discharge, received 24 hours of antibiotics postoperatively), DVT (no edema or pain of calf), and hematoma (hemoglobin has remained stable indicating no active bleeding).
--- NOTE | 2021-01-10 09:03 | PCM.SN.2 ---
- Free Text/Narrative Note: Will check CBC and CMP this morning due to maternal tachycardia and temperature.
[2021-01-10 09:47] LABS: BLOOD UREA NITROGEN,BUN 9 mg/dL (7.0-18.0); CARBON DIOXIDE,CO2 24.2 mmol/L (21.0-32.0); CHLORIDE,CL 106 mmol/L (98-107); GLUCOSE RANDOM 120 mg/dL (74-106); POTASSIUM,K 3.6 mmol/L (3.5-5.1); SODIUM,NA 139 mmol/L (136-145)
--- NOTE | 2021-01-10 10:06 | PCM.SN.2 ---
- Free Text/Narrative Note: Hemoglobin currently 8.4. Given significant intra-operative blood loss, maternal tachycardia, and maternal anemia, will proceed with transfusion of 1 unit packed RBCs. Will repeat hemoglobin at 1600 today and in AM. If symptoms do not resolve and hemoglobin continues to decrease, will obtain CT abdomen/pelvis to evaluate for enlarging hematoma. Reviewed risks of transfusion, including fever, itching, and very low risk of HIV/Hepatitis, though not zero risk. She voiced understanding of the above and agrees to transfusion. WBC count normal, low suspicion for continued infection. Cr decreased to 0.7, low suspicion for kidney injury from surgery. Will continue to monitor closely.
--- NOTE | 2021-01-10 16:44 | PCM.SN.2 ---
- Free Text/Narrative Note: Patient states she is doing well since blood transfusion. Hemoglobin has appropriately increased from 8.4 to 9.4. Maternal tachycardia and elevated temperature have resolved. Nausea resolved, has not yet tried to eat. Continues to ambulate and void. Pain controlled. Will monitor overnight and repeat hemoglobin in AM.
[2021-01-11] MEDS: Ibuprofen 800 MG Tab PO PRN (05:27)
[2021-01-11] MEDS ORDERED: Acetaminophen 325 MG Tab PO PRN (07:00)
--- NOTE | 2021-01-11 08:36 | PCM.PNPP ---
- General Info Date of Service: 01/11/21 Subjective Update: Patient doing very well today. Continues to ambulate, void, and pass flatus without difficulty. Nausea resolved. Pain controlled with oral Ibuprofen & Tylenol; has not taken narcotic pain medication. Denies dizziness, fevers/chills. - Review of Systems General: Reports: No Symptoms HEENT: Reports: No Symptoms Pulmonary: Reports: No Symptoms Cardiovascular: Reports: No Symptoms Gastrointestinal: Reports: No Symptoms Genitourinary: Reports: No Symptoms Musculoskeletal: Reports: No Symptoms Skin: Reports: No Symptoms Neurological: Reports: No Symptoms Psychiatric: Reports: No Symptoms - Patient Data Vital Signs - Most Recent: Last Vital Signs Temp 36.3 C 01/11/21 08:18 Pulse 94 01/11/21 08:18 Resp 20 01/11/21 08:18 BP 129/82 01/11/21 08:18 Pulse Ox 97 01/11/21 05:25 Weight - Most Recent: 107.955 kg Lab Results - Last 24 Hours: Laboratory Results - last 24 hr 01/07/21 01/07/21 01/10/21 Range/Units 20:36 20:36 09:13 WBC 13.37 H (4.0-11.0) K/uL RBC 3.08 L (4.30-5.90) M/uL Hgb 8.4 L (12.0-16.0) g/dL Hct 25.5 L (36.0-46.0) % MCV 82.8 (80.0-98.0) fL MCH 27.3 (27.0-32.0) pg MCHC 32.9 (31.0-37.0) g/dL RDW Std Deviation 56.3 (28.0-62.0) fl RDW Coeff of Lotus 19 H (11.0-15.0) % Plt Count 217 (150-400) K/uL MPV 9.40 (7.40-12.00) fL Neut % (Auto) 84.0 H (48.0-80.0) % Lymph % (Auto) 11.1 L (16.0-40.0) % [place] % (Auto) 4.7 (0.0-15.0) % Eos % (Auto) 0.1 (0.0-7.0) % Baso % (Auto) 0.1 (0.0-1.5) % Neut # (Auto) 11.2 H (1.4-5.7) K/uL Lymph # (Auto) 1.5 (0.6-2.4) K/uL [place] # (Auto) 0.6 (0.0-0.8) K/uL Eos # (Auto) 0.0 (0.0-0.7) K/uL Baso # (Auto) 0.0 (0.0-0.1) K/uL Nucleated RBC % 0.0 /100WBC Nucleated RBCs # 0 K/uL Sodium (136-145) mmol/L Potassium (3.5-5.1) mmol/L Chloride (98-107) mmol/L Carbon Dioxide (21.0-32.0) mmol/L BUN (7.0-18.0) mg/dL Creatinine (0.6-1.0) mg/dL Est Cr Clr Drug Dosing mL/min Estimated GFR (MDRD) ml/min Glucose (74-106) mg/dL Calcium (8.5-10.1) mg/dL Total Bilirubin (0.2-1.0) mg/dL AST (15-37) IU/L ALT (14-63) IU/L Alkaline Phosphatase (46-116) U/L Total Protein (6.4-8.2) g/dL Albumin (3.4-5.0) g/dL Globulin (2.6-4.0) g/dL Albumin/Globulin Ratio (0.9-1.6) RPR Non-Reac (Non-Reac) Blood Type O POSITIVE Antibody Screen NEGATIVE Crossmatch See Detail 01/10/21 01/10/21 01/11/21 Range/Units 09:13 16:01 05:10 WBC (4.0-11.0) K/uL RBC (4.30-5.90) M/uL Hgb 9.4 L 8.9 L (12.0-16.0) g/dL Hct 28.5 L 27.2 L (36.0-46.0) % MCV (80.0-98.0) fL MCH (27.0-32.0) pg MCHC (31.0-37.0) g/dL RDW Std Deviation (28.0-62.0) fl RDW Coeff of Lotus (11.0-15.0) % Plt Count (150-400) K/uL MPV (7.40-12.00) fL Neut % (Auto) (48.0-80.0) % Lymph % (Auto) (16.0-40.0) % [place] % (Auto) (0.0-15.0) % Eos % (Auto) (0.0-7.0) % Baso % (Auto) (0.0-1.5) % Neut # (Auto) (1.4-5.7) K/uL Lymph # (Auto) (0.6-2.4) K/uL [place] # (Auto) (0.0-0.8) K/uL Eos # (Auto) (0.0-0.7) K/uL Baso # (Auto) (0.0-0.1) K/uL Nucleated RBC % /100WBC Nucleated RBCs # K/uL Sodium 139 (136-145) mmol/L Potassium 3.6 (3.5-5.1) mmol/L Chloride 106 (98-107) mmol/L Carbon Dioxide 24.2 (21.0-32.0) mmol/L BUN 9 (7.0-18.0) mg/dL Creatinine 0.7 (0.6-1.0) mg/dL Est Cr Clr Drug Dosing 114.01 mL/min Estimated GFR (MDRD) > 60.0 ml/min Glucose 120 H (74-106) mg/dL Calcium 7.3 L (8.5-10.1) mg/dL Total Bilirubin 0.2 (0.2-1.0) mg/dL AST 28 (15-37) IU/L ALT 15 (14-63) IU/L Alkaline Phosphatase 142 H (46-116) U/L Total Protein 5.7 L (6.4-8.2) g/dL Albumin 1.8 L (3.4-5.0) g/dL Globulin 3.9 (2.6-4.0) g/dL Albumin/Globulin Ratio 0.5 L (0.9-1.6) RPR (Non-Reac) Blood Type Antibody Screen Crossmatch Med Orders - Current: Current Medications Acetaminophen (Acetaminophen 500 Mg Tab) 1,000 mg PO Q6H PRN PRN Reason: Fever Last Admin: 01/08/21 16:45 Dose: 1,000 mg Documented by: Acetaminophen (Acetaminophen 325 Mg Tab) 650 mg PO Q6H PRN PRN Reason: Pain Bisacodyl (Bisacodyl 10 Mg Supp) 10 mg RECTAL ONETIME PRN PRN Reason: Constipation Butorphanol Tartrate (Butorphanol 1 Mg/Ml Sdv) 1 mg IVPUSH Q1H PRN PRN Reason: Pain Last Admin: 01/08/21 04:42 Dose: 1 mg Documented by: Carboprost Tromethamine (Carboprost Tromethamine 250 Mcg/1 Ml Amp) 250 mcg IM ASDIRECTED PRN PRN Reason: Post Hemorrhage Diphenhydramine HCl (Diphenhydramine 50 Mg/Ml Sdv) 25 mg IVPUSH Q6H PRN PRN Reason: Itching or Nausea Docusate Sodium (Docusate Sodium 100 Mg Cap) 100 mg PO BID TOBY Last Admin: 01/10/21 20:54 Dose: 100 mg Documented by: Emollient Ointment (Lanolin 100% Cream 7 Gm Tube) 0 gm TOP ASDIRECTED PRN PRN Reason: Sore Nipples Oxytocin/Sodium Chloride (Oxytocin 30 Unit/500 Ml-Ns) 30 unit in 500 mls @ 999 mls/hr IV TITRATE TOBY Tranexamic Acid 1,000 mg/ (Sodium Chloride) 110 mls @ 660 mls/hr IV ONETIME PRN PRN Reason: Bleeding Oxytocin/Sodium Chloride (Oxytocin 30 Unit/500 Ml-Ns) 30 unit in 500 mls @ 2 mls/hr IV TITRATE [facility]; Protocol Last Titration: 01/08/21 18:12 Dose: 0 munits/min, 0 mls/hr Documented by: Lactated Ringer's (Ringers, Lactated) 1,000 mls @ 150 mls/hr IV ASDIRECTED TOBY Last Infusion: 01/08/21 14:30 Dose: 150 mls/hr Documented by: Oxytocin/Sodium Chloride (Oxytocin 30 Unit/500 Ml-Ns) 30 unit in 500 mls @ 250 mls/hr IV TITRATE TOBY Lactated Ringer's (Ringers, Lactated) 1,000 mls @ 125 mls/hr IV ASDIRECTED TOBY Last Admin: 01/09/21 04:58 Dose: 125 mls/hr Documented by: Oxytocin/Lactated Ringer's (Pitocin In Lr 30 Units/500 Ml) 30 unit in 500 mls @ 999 mls/hr IV TITRATE TOBY; Protocol Ibuprofen (Ibuprofen 800 Mg Tab) 800 mg PO Q8H PRN PRN Reason: mild pain or fever Last Admin: 01/11/21 05:27 Dose: 800 mg Documented by: Lidocaine HCl (Lidocaine 1% 50 Ml Mdv) 50 ml INJECT ONETIME PRN PRN Reason: Laceration repair Methylergonovine Maleate (Methylergonovine 0.2 Mg/1 Ml Amp) 0.2 mg IM ASDIRECTED PRN PRN Reason: Post Hemorrhage Misoprostol (Misoprostol 200 Mcg Tab) 200 mcg PO ONETIME PRN PRN Reason: Post Hemorrhage Misoprostol (Misoprostol 25 Mcg (1/4 Of 100 Mcg) Tab) 25 mcg VAG ONETIME PRN PRN Reason: Cervical Ripening Last Admin: 01/07/21 22:06 Dose: 25 mcg Documented by: Misoprostol (Misoprostol 25 Mcg (1/4 Of 100 Mcg) Tab) 25 mcg VAG Q4H PRN PRN Reason: Cervical Ripening Last Admin: 01/08/21 01:53 Dose: 25 mcg Documented by: Nalbuphine HCl (Nalbuphine 10 Mg/1 Ml Vial) 10 mg IVPUSH Q1H PRN PRN Reason: Pain (severe 7-10) Ondansetron HCl (Ondansetron 4 Mg/2 Ml Sdv) 4 mg IVPUSH Q6H PRN PRN Reason: Nausea/Vomiting Last Admin: 01/10/21 05:49 Dose: 4 mg Documented by: Ondansetron HCl (Ondansetron 4 Mg/2 Ml Sdv) 4 mg IVPUSH Q4H PRN PRN Reason: Nausea/Vomiting Oxycodone/Acetaminophen (Acetaminophen/Oxycodone 325-5 Mg Tab) 1 tab PO Q4H PRN PRN Reason: Pain (moderate 4-6) Oxycodone/Acetaminophen (Acetaminophen/Oxycodone 325-5 Mg Tab) 2 tab PO Q4H PRN PRN Reason: Pain (moderate 4-6) Sodium Chloride (Sodium Chloride 0.9% 10 Ml Syringe) 10 ml FLUSH ASDIRECTED PRN PRN Reason: Keep Vein Open Sodium Chloride (Sodium Chloride 0.9% 2.5 Ml Syringe) 2.5 ml FLUSH ASDIRECTED PRN PRN Reason: Keep Vein Open Sodium Chloride (Sodium Chloride 0.9% 10 Ml Sdv) 10 ml IV ASDIRECTED PRN PRN Reason: IV Use Sterile Water (Water For Irrigation,Sterile 1,000 Ml Container) 1,000 ml IRR ASDIRECTED PRN PRN Reason: delivery Terbutaline Sulfate (Terbutaline 1 Mg/Ml Sdv) 0.25 mg SUBCUT ASDIRECTED PRN PRN Reason: Tacysystole Discontinued Medications Ampicillin Sodium (Ampicillin 2 Gm Vial) Confirm Administered Dose 2 gm .ROUTE .STK-MED ONE Stop: 01/07/21 21:46 Last Admin: 01/08/21 04:51 Dose: Not Given Documented by: Cefazolin Sodium (Cefazolin 1 Gm Vial) Confirm Administered Dose 2 gm .ROUTE .STK-MED ONE Stop: 01/08/21 18:23 Citric Acid/Sodium Citrate (Citric Acid/Sodium Citrate Solution 30 Ml Cup) 30 ml PO ONETIME ONE Stop: 01/08/21 18:17 Fentanyl (Fentanyl 100 Mcg/2 Ml Sdv) Confirm Administered Dose 100 mcg .ROUTE .STK-MED ONE Stop: 01/08/21 06:10 Fentanyl (Fentanyl 100 Mcg/2 Ml Sdv) Confirm Administered Dose 100 mcg .ROUTE .STK-MED ONE Stop: 01/08/21 13:27 Fentanyl (Fentanyl 100 Mcg/2 Ml Sdv) Confirm Administered Dose 100 mcg .ROUTE .STK-MED ONE Stop: 01/08/21 15:02 Fentanyl (Fentanyl 100 Mcg/2 Ml Sdv) Confirm Administered Dose 100 mcg .ROUTE .STK-MED ONE Stop: 01/08/21 18:22 Ampicillin Sodium 2 gm/ Sodium (Chloride) 100 mls @ 200 mls/hr IV ONETIME ONE Stop: 01/07/21 21:29 Last Admin: 01/07/21 22:04 Dose: 200 mls/hr Documented by: Ampicillin Sodium 1 gm/ Sodium (Chloride) 50 mls @ 100 mls/hr IV Q4H TOBY Last Admin: 01/08/21 15:17 Dose: 100 mls/hr Documented by: Sodium Chloride (Normal Saline) Confirm Administered Dose 100 mls @ as directed .ROUTE .[facility]-MED ONE Stop: 01/07/21 21:46 Last Admin: 01/08/21 04:51 Dose: Not Given Documented by: Ropivacaine (Naropin 0.2%) Confirm Administered Dose 100 mls @ as directed .ROUTE .[facility]-MED ONE Stop: 01/08/21 06:10 Ropivacaine (Naropin 0.2%) Confirm Administered Dose 100 mls @ as directed .ROUTE .[facility]-MED ONE Stop: 01/08/21 15:03 Gentamicin Sulfate 540 mg/ (Sodium Chloride) 113.5 mls @ 227 mls/hr IV Q24H [facility] Last Admin: 01/08/21 17:51 Dose: 227 mls/hr Documented by: Clindamycin Phosphate 900 mg/ (Premix) 50 mls @ 100 mls/hr IV Q8H [facility] Stop: 01/09/21 19:00 Last Admin: 01/09/21 20:22 Dose: 100 mls/hr Documented by: Sodium Chloride (Normal Saline) Confirm Administered Dose 20 mls @ as directed .ROUTE .[facility] ONE Stop: 01/08/21 18:23 Acetaminophen (Ofirmev 1000 Mg/100 Ml) Confirm Administered Dose 100 mls @ as directed .ROUTE .[facility] ONE Stop: 01/08/21 19:38 Gentamicin Sulfate 540 mg/ (Sodium Chloride) 63.5 mls @ 100 mls/hr IV ONETIME ONE Stop: 01/09/21 18:38 Gentamicin Sulfate 540 mg/ (Sodium Chloride) 113.5 mls @ 178.74 mls/hr IV ONETIME ONE Stop: 01/09/21 18:53 Last Admin: 01/09/21 18:42 Dose: 178.74 mls/hr Documented by: Ketorolac Tromethamine (Ketorolac 30 Mg/Ml Sdv) Confirm Administered Dose 30 mg .ROUTE .[facility]-MED ONE Stop: 01/08/21 18:22 Ketorolac Tromethamine (Ketorolac 30 Mg/Ml Sdv) [address] [facility] Stop: 01/09/21 14:16 Last Admin: 01/09/21 16:18 Dose: 30 mg Documented by: Ketorolac Tromethamine (Ketorolac 30 Mg/Ml Sdv) [address] [facility] Stop: 01/09/21 20:16 Last Admin: 01/09/21 20:23 Dose: 30 mg Documented by: Ketorolac Tromethamine (Ketorolac 30 Mg/Ml Sdv) 30 mg IVPUSH ONETIME ONE Stop: 01/10/21 06:42 Last Admin: 01/10/21 07:44 Dose: 30 mg Documented by: Lidocaine/Epinephrine (Lidocaine 2% With Epinephrine 1:200,000 20 Ml Sdv) Confirm Administered Dose 20 ml .ROUTE .STK-MED ONE Stop: 01/08/21 13:27 Lidocaine/Epinephrine (Lidocaine 2% With Epinephrine 1:200,000 20 Ml Sdv) Confirm Administered Dose 20 ml .ROUTE .STK-MED ONE Stop: 01/08/21 18:23 Measles/Mumps/Rubella Vaccine Live (Measles, Mumps & Rubella Vaccine 0.5 Ml Sdv) 0.5 ml SUBCUT .ONCE ONE Stop: 01/08/21 21:01 Midazolam HCl (Midazolam 1 Mg/Ml 2 Ml Sdv) Confirm Administered Dose 2 mg .ROUTE .STK-MED ONE Stop: 01/08/21 19:08 Morphine Sulfate (Morphine Pf 10 Mg/10 Ml Sdv) Confirm Administered Dose 10 mg .ROUTE .STK-MED ONE Stop: 01/08/21 18:22 Nalbuphine HCl (Nalbuphine 10 Mg/1 Ml Vial) 5 mg IVPUSH Q3H PRN PRN Reason: Pruritis Stop: 01/09/21 19:03 Ondansetron HCl (Ondansetron 4 Mg/2 Ml Sdv) Confirm Administered Dose 4 mg .ROUTE .STK-MED ONE Stop: 01/08/21 18:22 Oxytocin (Oxytocin 10 Units/1 Ml Sdv) Confirm Administered Dose 20 unit .ROUTE .STK-MED ONE Stop: 01/08/21 18:22 Phenylephrine HCl (Phenylephrine 1% 10 Mg/Ml Sdv) Confirm Administered Dose 10 mg .ROUTE .STK-MED ONE Stop: 01/08/21 18:22 Promethazine HCl (Promethazine 25 Mg Supp) 25 mg RECTAL ONETIME ONE Stop: 01/10/21 06:41 Last Admin: 01/10/21 07:57 Dose: 25 mg Documented by: Ropivacaine (Ropivacaine 0.2% Pf 2 Mg/Ml 20 Ml Sdv) Confirm Administered Dose 20 ml .ROUTE .STK-MED ONE Stop: 01/08/21 06:10 Tranexamic Acid (Tranexamic Acid 1,000 Mg/10 Ml Amp) Confirm Administered Dose 1,000 mg .ROUTE .STK-MED ONE Stop: 01/08/21 19:30 - Interaction Infant Disposition, : in Room with Family Feeding: Attempted ; Nursed Fair/Poor, Bottle Fed Infant Support Person: Significant Other - Recovery Exam Fundal Tone: Firm Fundal Level: 1 Fingerbreadths Below Umbilicus Fundal Placement: Midline Lochia Amount: Scant Lochia Color: Rubra/Red Bladder Status: Voiding Urinary Elimination: Voided - Exam General: Alert, Oriented Neck: Supple Lungs: Normal Respiratory Effort GI/Abdominal Exam: Soft, No Distention, Tender (appropriate tenderness to palpation) Extremities: Non-Tender, No Pedal Edema Skin: Warm, Dry, Intact Wound/Incisions: Healing Well Neurological: No New Focal Deficit Psy/Mental Status: Alert, Normal Affect, Normal Mood - Problem List & Annotations (1) S/P primary low transverse SNOMED Code(s): 400395532, 77803287, 888571290, 814268360, 098969336 Code(s): Z98.891 - HISTORY OF UTERINE SCAR FROM PREVIOUS SURGERY Status: Acute Current Visit: Yes (2) Arrest of descent, delivered, current hospitalization SNOMED Code(s): 92419865, 929909675 Code(s): O62.1 - SECONDARY UTERINE INERTIA Status: Acute Current Visit: Yes (3) macrosomia, delivered, current hospitalization SNOMED Code(s): 70379994, 859283541, 540059173 Code(s): O36.60X0 - MATERNAL CARE FOR EXCESS GROWTH, UNSP TRIMESTER, UNSP Status: Acute Current Visit: Yes (4) hemorrhage, delivered, current hospitalization SNOMED Code(s): 06855472, 859075371 Code(s): O72.1 - OTHER IMMEDIATE HEMORRHAGE Status: Acute Current Visit: Yes (5) Chorioamnionitis, delivered, current hospitalization SNOMED Code(s): 90126863, 213984675 Code(s): O41.1290 - CHORIOAMNIONITIS, UNSP TRIMESTER, NOT APPLICABLE OR UNSP Status: Acute Current Visit: Yes (6) Gestational diabetes, diet controlled SNOMED Code(s): 01011654, 748417547, 829122797 Code(s): O24.410 - GESTATIONAL DIABETES MELLITUS IN , DIET CONTROLLED Status: Acute Current Visit: Yes - Problem List Review Problem List Initiated/Reviewed/Updated: Yes - My Orders Last 24 Hours: My Active Orders 01/10/21 10:00 Communication Order [RC] PER UNIT ROUTINE Verify Patient Consent Obtain [RC] ASDIRECTED Transfuse Red Blood Cells [COMM] Routine 01/11/21 08:34 Ready for Discharge [RC] PER UNIT ROUTINE 01/12/21 05:11 HEMOGLOBIN/HEMATOCRIT,HH [HEME] AM - Assessment Assessment:: 25yo s/p 1LTCS at 40w0d for arrest of descent, persistent OP position, POD#3 - Plan Plan:: 1. care: Meeting all post-op milestones. 2. Anemia: Hemoglobin stable after 1 unit packed RBCs transfused yesterday. Vital signs have normalized. 3. Rubella non-immune: MMR ordered. 4. GDMA1: 2-hour GTT . 5. Dispo: Discharge home today. Reviewed discharge instructions/precautions. All questions answered. Follow-up incision check in 2 weeks, sooner if problems arise.
[2021-01-11] MEDS ORDERED: Measles, Mumps & Rubella Vaccine 0.5 ML SDV SUBCUT ONE ×3 (09:09→10:27)
[2021-01-11] MEDS: Docusate Sodium 100 MG Cap PO SCH (10:40)
== END 2021-01-11 11:22 | disposition home or self-care (01) | DRG 540 ==
LOC: MW.OBCHECK 19:09 → MW.OB 19:09 → MW.OBCHECK 19:34 → MW.OB 19:34 → OBSVTOIN 01-08 18:57 → MW.OB 01-08 23:30
PROVIDERS: ADMIT Obstetrics & Gynecology; ATTEND Obstetrics & Gynecology
PROC: 10D00Z1 Extraction of Products of Conception, Low, Open Approach (ICD-10-PCS; principal; 2021-01-08)
PROC: 3E0P7VZ Introduction of Hormone into Female Reproductive, Via Natural or Artificial Opening (ICD-10-PCS; 2021-01-08)
PROC: 3E0R3BZ Introduction of Anesthetic Agent into Spinal Canal, Percutaneous Approach (ICD-10-PCS; 2021-01-08)
PROC: 00HU33Z Insertion of Infusion Device into Spinal Canal, Percutaneous Approach (ICD-10-PCS; 2021-01-08)
DX: O24.420 Gestational diabetes mellitus in childbirth, diet controlled (principal); Z37.0 Single live birth; O62.1 Secondary uterine inertia; O36.63X0 Maternal care for excessive fetal growth, third trimester, not applicable or unspecified; O41.1230 Chorioamnionitis, third trimester, not applicable or unspecified; O72.1 Other immediate postpartum hemorrhage; O99.214 Obesity complicating childbirth; E66.9 Obesity, unspecified; O99.824 Streptococcus B carrier state complicating childbirth; O99.02 Anemia complicating childbirth; D64.9 Anemia, unspecified; Z3A.40 40 weeks gestation of pregnancy
CPT/HCPCS: 36415; 36430; 51702; 59025; 80048; 80053; 82803; 82947; 85014; 85018; 85025; 85027; 86592; 86850; 86900; 86901; 86920; 86921; 86922; 90707; A9270-GY; J0131; J0290; J0595; J0690; J1580; J1885; J2250; J2270; J2370; J2405; J2590; J2795; J3010; J3490; J7120; P9016